=== PATIENT | male | born 2000 | race Caucasian/White ===

== ENCOUNTER → 2023-07-27 15:22 | Outpatient (BNVA) | payer OTHER, MEDICAID, SELFPAY | PROVIDERS: Family Provider Family Medicine; PCP Registered Nurse; Visit Provider Registered Nurse | DX: Z20.2 Contact with and (suspected) exposure to infections with a predominantly sexual mode of transmission (principal) | CPT/HCPCS: 87491; 87591 ==

== ENCOUNTER → 2023-08-05 15:34 | Outpatient (BNVA) | payer OTHER, MEDICAID, SELFPAY | PROVIDERS: Family Provider Family Medicine; PCP Registered Nurse; Visit Provider Registered Nurse | DX: A74.9 Chlamydial infection, unspecified (principal) | CPT/HCPCS: 87491; 87591 ==

== ENCOUNTER 2023-11-20 15:40 | Emergency (ER) | payer OTHER, SELFPAY ==
[2023-11-20 15:51] VITALS: BP 117/72; PULSE 85; RESP 17; TEMP 37.5; O2SAT 99; BMI 20.9
--- NOTE | 2023-11-20 16:39 | W.ED.ABDPA2 ---
HPI - Abdominal Pain General: Chief Complaint: Abdominal Pain Stated Complaint: stomach pain, fever Time Seen by Provider: 11/20/23 16:25 History of Present Illness: Is a healthy 23-year-old male who presents to the emergency room with abdominal pain. He has been having some periumbilical and lower abdominal pain for about 3 days now. He says he had a fever last night. He had some nausea but no vomiting. Hurts with movement and palpation. No dysuria. No chest pain. No altered mental status. Review of Systems Narrative: Constitutional symptoms: Negative except as documented in HPI. Skin symptoms: Negative except as documented in HPI. Eye symptoms: Negative except as documented in HPI. ENMT symptoms: Negative except as documented in HPI. Respiratory symptoms: Negative except as documented in HPI. Cardiovascular symptoms: Negative except as documented in HPI. Gastrointestinal symptoms: Negative except as documented in HPI. Genitourinary symptoms: Negative except as documented in HPI. Musculoskeletal symptoms: Negative except as documented in HPI. Neurologic symptoms: Negative except as documented in HPI. Psychiatric symptoms: Negative except as documented in HPI. Endocrine symptoms: Negative except as documented in HPI. PFSH ED PFSH: Medical History Acute lingual tonsillitis TMJ arthralgia Sore throat and laryngitis Social History Smoking and tobacco/nicotine status: current every day tobacco/nicotine user Alcohol intake: never Substance/Drug Use: never Adopted: No Caregiver/support person: No Lives independently: No service: No Current occupational status: employed Sexually active: Yes Do you think of yourself as: Straight/Heterosexual Current gender identity: Male Physical Exam Narrative: EXAM NARRATIVE: General: Alert, no acute distress. Skin: Warm, dry. Head: Normocephalic, atraumatic. Neck: Supple, trachea midline. Eye: Extraocular movements are intact. Ears, nose, mouth and throat: mucosa moist. Cardiovascular: Regular, Normal peripheral perfusion. Respiratory: Lungs are clear to auscultation, respirations are non-labored, breath sounds are equal, Symmetrical chest wall expansion. Gastrointestinal: Soft, some mid to low abdominal tenderness to palpation, Non distended, Normal bowel sounds. Musculoskeletal: Normal ROM, no deformity. Neurological: Alert and oriented, No focal neurological deficit observed. Psychiatric: Cooperative, appropriate mood & affect. Course Vital Signs: Vital signs: Vital Signs Temperature 99.5 F 11/20/23 15:51 Pulse Rate 90 11/20/23 18:29 Respiratory Rate 17 11/20/23 15:51 Blood Pressure 130/68 11/20/23 18:29 Pulse Oximetry 100 11/20/23 18:29 Oxygen Delivery Me thod Room Air 11/20/23 15:51 MDM - Abdominal Pain Medical Decision Making Medical decision making: Differential diagnosis for this patient with lower/right lower abdominal pain including but not limited to and based on the above HPI, review of systems and physical exam: Ureterolithiasis. Urinary tract infection. Appendicitis. colitis. small bowel obstruction. Crohn's flare. Pancreatitis. Cholelithiasis or cholecystitis. Hepatitis. Diverticulitis. Constipation. ovarian cyst. ovarian torsion Workup: Orders were placed to evaluate differential diagnosis based on the above differential, HPI and exam: Lab Review: Laboratory results were reviewed and interpreted by myself the emergency room physician. No leukocytosis but CRP is quite elevated at 65. No anemia. BUN/creatinine are fairly normal at 13 and 1.1. Urinalysis is negative. CT of the abdomen pelvis with contrast: Colonic inflammation indicative of colitis. Concern for some inflammation around the bladder. The urinalysis is negative however. This was reviewed and interpreted by myself the emergency room physician. I also reviewed the radiology report. I reviewed the patient's medical record Reexamination: Patient remained stable. He is in no distress. No increased work of breathing. He still has some lower abdominal pain. We discussed the findings and the plan. Assessment and plan: Colitis -Possible viral colitis versus bacterial versus autoimmune. He has never had issues like this before so I doubt Crohn's or UC but given the elevation in his CRP I did discuss that he should follow-up with his primary if he has recurrence of symptoms. And follow in the next few days to reevaluate. ? IV methylprednisolone, Flagyl and Cipro in the emergency room - Discharged home - Discussed findings and plan with patient. Answered any questions. - All laboratory values were reviewed and interpreted personally by myself, the ER physician - All imaging was reviewed and interpreted personally by myself, the ER physician. - Evaluation and treatment of this problem were appropriate in the emergency setting Lab Data 11/20/23 16:37 11/20/23 16:37 Labs/Radiology: Radiology Impressions Abdomen/Pelvis CT 11/20/23 17:32 IMPRESSION: 1. Abnormal thickening of the terminal ileum and right colon which may represent some nonspecific colitis. Inflammatory bowel disease is not excluded. 2. Nonspecific thickening of the urinary bladder. Please correlate for any clinical signs or symptoms of urinary tract infection. 3. There is minimal free fluid in the pelvis. Laboratory Results WBC 6.84 10^3/uL (3.29-11.43) 11/20/23 16:37 RBC 5.23 10^6/uL (3.85-5.65) 11/20/23 16:37 Hgb 14.60 g/dL (11.27-16.99) 11/20/23 16:37 Hct 43.9 % (37-53) 11/20/23 16:37 MCV 83.9 fl (82-101) 11/20/23 16:37 MCH 27.9 pg (27-33) 11/20/23 16:37 MCHC 33.3 g/dL (30-55) 11/20/23 16:37 RDW 12.4 % (12.1-15.1) 11/20/23 16:37 Plt Count 186 10^3/cmm (157-399) 11/20/23 16:37 MPV 9.6 fL (7.4-10.4) 11/20/23 16:37 Neut % (Auto) 71.1 % 11/20/23 16:37 Lymph % (Auto) 14.8 % 11/20/23 16:37 Patrick % (Auto) 12.0 % 11/20/23 16:37 Eos % (Auto) 1.3 % 11/20/23 16:37 Baso % (Auto) 0.7 % 11/20/23 16:37 Neut # (Auto) 4.86 10^3/uL (1.8-7.7) 11/20/23 16:37 Lymph # (Auto) 1.0 10^3/uL (0.8-4.8) 11/20/23 16:37 Patrick # (Auto) 0.8 10^3/uL (0.2-0.9) 11/20/23 16:37 Eos # (Auto) 0.1 10^3/uL (0.0-0.8) 11/20/23 16:37 Baso # (Auto) 0.1 10^3/uL (0.0-0.1) 11/20/23 16:37 Nucleated RBC % (auto) 0 % 11/20/23 16:37 Nucleated RBCs # 0.0 /100WBC 11/20/23 16:37 Sodium 138 mmol/L (136-145) 11/20/23 16:37 Potassium 3.9 mmol/L (3.5-5.1) 11/20/23 16:37 Chloride 103 mmol/L (98-107) 11/20/23 16:37 Carbon Dioxide 25 mmol/L (22-29) 11/20/23 16:37 Anion Gap 13.9 (5-19) 11/20/23 16:37 BUN 13 mg/dL (6-20) 11/20/23 16:37 Creatinine 1.1 mg/dL (0.7-1.2) 11/20/23 16:37 GFR Calculation 83.7 mL/min (90-130) L 11/20/23 16:37 Glucose 94 mg/dL (65-115) 11/20/23 16:37 Calculated Osmolality 286 mOsm/kg (285-295) 11/20/23 16:37 Calcium 9.7 mg/dL (8.5-10.5) 11/20/23 16:37 Total Bilirubin 0.4 mg/dL (0.15-1.2) 11/20/23 16:37 AST 18 U/L (0-40) 11/20/23 16:37 ALT 18 U/L (0-41) 11/20/23 16:37 Alkaline Phosphatase 81 U/L (40-130) 11/20/23 16:37 C-Reactive Protein 66.7 mg/L (0.0-4.9) H 11/20/23 16:37 Total Protein 8.0 g/dL (6.6-8.7) 11/20/23 16:37 Albumin 4.5 g/dL (3.5-5.2) 11/20/23 16:37 Globulin 3.5 g/dL (1.3-4.6) 11/20/23 16:37 Lipase 18 U/L (13-60) 11/20/23 16:37 Urine Color Yellow (Yellow) 11/20/23 16:30 Urine Appearance Clear (CLEAR) 11/20/23 16:30 Urine pH 5 (5-7) 11/20/23 16:30 Ur Specific Frederick 1.020 (1.005-1.030) 11/20/23 16:30 Urine Protein Neg (Negative) 11/20/23 16:30 Urine Glucose (UA) Norm (Normal) 11/20/23 16:30 Urine Ketones Negative (Negative) 11/20/23 16:30 Urine Blood Neg (Negative) 11/20/23 16:30 Urine Nitrate Negative (Negative) 11/20/23 16:30 Urine Bilirubin Neg (Negative) 11/20/23 16:30 Urine Urobilinogen Norm mg/dL (Negative) 11/20/23 16:30 Ur Leukocyte Esterase Negative (Negative) 11/20/23 16:30 All radiology interpretation(s) finalized by discharge Discharge Plan Discharge Patient Disposition: Home Clinical Impression: Colitis Condition: Stable Prescriptions: New prednisone 20 mg tablet 60 mg PO DAILY 5 Days Qty: 15 0RF metronidazole 500 mg tablet 500 mg PO Q8H 10 Days Qty: 30 0RF ciprofloxacin HCl 500 mg tablet 500 mg PO BID 10 Days Qty: 20 0RF ondansetron 8 mg tablet,disintegrating 8 mg PO .q6 PRN (Reason: nausea and vomiting) Qty: 14 0RF Discharge Orders: Discharge ED (Routine); Ordered 11/20/23 Ordered By: Nat Marshall Referrals: Ozzie Lorenzana HIDE GRADER [Primary Care Provider] - 4-7 days Discharge Diet: Advance as tolerated Discharge Activity: Increase activity as tolerated Patient Instructions: Colitis (ED) Activity Restrictions/Additional Instructions: Thank you for choosing [facility] for your healthcare needs today. Please realize this is an emergency room and that we are providing you with a medical screening exam and this may not be complete and all inclusive of all the testing and or work up that you may need to determine your ailment or severity of your illness. You have been screened and evaluated and felt safe for discharge. Health conditions do change or evolve sometimes and as such it is important that you follow up with your Primary Doctor to be re checked, 3-5 days is a general good time frame for follow up. You are always welcome to return to the ED for re assessment if your symptoms are worsening or you have new concerns Coding Level of Care Code ED Tutoring Manager for Harpal Butterfield
[2023-11-20 16:53] LABS: Add Urine Microscopic? NO; Charge for UA Resulting for Rev
[2023-11-20 17:02] LABS: Bilirubin Urine Neg (Negative); Blood Urine Neg (Negative); Glucose Urine UA Norm (Normal); Ketones Urine Negative (Negative); Leukocyte Esterase Urine Negative (Negative); Nitrate Urine Negative (Negative); Protein Urine Neg (Negative); Urine Appearance Clear (CLEAR); Urine Color Yellow (Yellow); Urobilinogen Urine Norm (Negative); pH Urine 5 (5-7)
[2023-11-20 17:03] LABS: Basophils # 0.1 10^3/uL (0.0-0.1); Basophils % 0.7 %; Eosinophils # 0.1 10^3/uL (0.0-0.8); Eosinophils % 1.3 %; Hematocrit 43.9 % (37-53); Lymphocytes % 14.8 %; Mean Corpuscular HGB Conc 33.3 g/dL (30-55); Mean Corpuscular Hemoglobin 27.9 pg (27-33); Mean Corpuscular Volume 83.9 fl (82-101); Mean Platelet Volume 9.6 fL (7.4-10.4); Monocytes # 0.8 10^3/uL (0.2-0.9); Neutrophils # 4.86 10^3/uL (1.8-7.7); Neutrophils % 71.1 %; Nucleated Red Blood Cells % 0 %; Platelet Count 186 10^3/cmm (157-399); Red Blood Count 5.23 10^6/uL (3.85-5.65); Red Cell Distribution Width 12.4 % (12.1-15.1); White Blood Count 6.84 10^3/uL (3.29-11.43)
[2023-11-20 17:20] LABS: Alanine Aminotransferase 18 U/L (0-41); Albumin Level 4.5 g/dL (3.5-5.2); Alkaline Phosphatase 81 U/L (40-130); Anion Gap 13.9 (5-19); Aspartate Amino Transferase 18 U/L (0-40); Blood Urea Nitrogen 13 mg/dL (6-20); C Reactive Protein 66.7 mg/L (0.0-4.9); Calcium 9.7 mg/dL (8.5-10.5); Carbon Dioxide 25 mmol/L (22-29); Chloride 103 mmol/L (98-107); Creatinine Clr Calc Pharmacy 104.7244; Globulin 3.5 g/dL (1.3-4.6); Glomerular Filtration Rate 83.7 mL/min (90-130); Glucose 94 mg/dL (65-115); Lipase 18 U/L (13-60); Osmolality Calculated 286 mOsm/kg (285-295); Potassium 3.9 mmol/L (3.5-5.1); Sodium 138 mmol/L (136-145); Total Bilirubin 0.4 mg/dL (0.15-1.2)
--- NOTE | 2023-11-20 17:32 | CTR_ITS ---
PROCEDURE INFORMATION: Exam: CT Abdomen And Pelvis With Contrast Exam date and time: 11/20/2023 5:47 PM Age: 23 years old Clinical indication: Abdominal pain; Localized; Right lower quadrant (rlq); Additional info: Rlq abdominal pain TECHNIQUE: Imaging protocol: Computed tomography of the abdomen and pelvis with contrast. Radiation optimization: All CT scans at this facility use at least one of these dose optimization techniques: automated exposure control; mA and/or kV adjustment per patient size (includes targeted exams where dose is matched to clinical indication); or iterative reconstruction. Contrast material: OMNI 350; Contrast volume: 100 ml; Contrast route: INTRAVENOUS (IV); COMPARISON: No relevant prior studies available. RADIATION DOSE METRICS: Total DLP (mGy-cm): 357.53 FINDINGS: Liver: There is no focal abnormality within the liver. Gallbladder and bile ducts: The gallbladder is normal. Pancreas: The pancreas is normal. Spleen: There is a 2 cm sized benign-appearing cyst in the spleen. No further evaluation is necessary. Adrenal glands: The adrenal glands are normal. Kidneys and ureters: The kidneys are normal. There is no evidence of hydronephrosis. There is no evidence of renal or ureteral calcifications. Stomach and bowel: The thickening also involves the terminal ileum. Findings could represent inflammatory bowel disease. Appendix: A normal appendix is identified. Intraperitoneal space: There is a small amount of free intraperitoneal fluid present. Vasculature: Unremarkable. No abdominal aortic aneurysm. Lymph nodes: There is no evidence of lymphadenopathy. Urinary bladder: There is moderate thickening of the urinary bladder. Please correlate for any clinical signs or symptoms of urinary tract infection. There is abnormal thickening of the right colon from the cecum through the mid transverse colon which may represent some nonspecific colitis. Please correlate clinically. Reproductive: Unremarkable as visualized. Bones/joints: Unremarkable. No acute fracture. Soft tissues: Unremarkable. CT/CT abdomen pelvis w con* [id number] IMPRESSION: 1. Abnormal thickening of the terminal ileum and right colon which may represent some nonspecific colitis. Inflammatory bowel disease is not excluded. 2. Nonspecific thickening of the urinary bladder. Please correlate for any clinical signs or symptoms of urinary tract infection. 3. There is minimal free fluid in the pelvis.
[2023-11-20] MEDS: iohexol 350 mg/mL 500 mL Btl (per mL) IV (17:56)
[2023-11-20] MEDS: methylPREDNISolone sod succ 125 mg/2 mL INJ IVP (18:26)
[2023-11-20 18:29] VITALS: BP 130/68; PULSE 90; O2SAT 100
[2023-11-20] MEDS: ciprofloxacin 400 MG/200 ML PREMIX 200 MG IV (18:29)
[2023-11-20] MEDS: metroNIDAZOLE IV 500 MG/100 ML PREMIX 100 MG IV (18:35)
--- NOTE | 2023-11-20 18:35 | PC.NURSE ---
MICROMEDICS CONFIRMED FLAGYL AND CIPRO ARE COMPATIBLE IV.
[2023-11-20 19:23] VITALS: BP 130/68; PULSE 90; RESP 17; TEMP 37.5; O2SAT 100
== END 2023-11-20 19:24 | disposition home or self-care (01) ==
PROVIDERS: Nurse Practitioner Family; Emergency Provider Emergency Medicine; PCP Registered Nurse
DX: K52.9 Noninfective gastroenteritis and colitis, unspecified (principal); Z72.0 Tobacco use
CPT/HCPCS: 74177; 80053; 81003; 83690; 85025; 86140; 96365; 96367; 96375; 99285; J0744; J2919; J3490; Q9967

== ENCOUNTER 2025-05-01 12:25 | Emergency (ER) | payer SELFPAY ==
[2025-05-01 12:27] VITALS: BP 130/74; PULSE 100; RESP 16; TEMP 36.6; O2SAT 98; BMI 18.6
--- OUTSIDE RECORDS SUMMARY | 2025-05-01 13:05 | XMS_ITS | Clinical Summary ---
Author Organization [facility] Address [address] Zamora: Epic Prelude ADT RONEL MALDONADO [address] Care Team Providers Care Weather Analyst Name Role Phone Jennifer Mary MD Primary Care Provider [phone] Allergies No known active allergies Medications No known medications Active Problems Problem Noted Date Diagnosed Date Second hand tobacco smoke exposure 05/23/2016 Nocturnal enuresis 07/24/2013 Verrucae vulgaris 09/29/2012 Encounters Date Type Department Care Team Description 02/08/2025 10:05 PM CDT - 02/08/2025 10:33 PM CDT Emergency [facility] Emergency Medicine [address] [place] [address] Owen Fajardo MD Lymphadenitis (Primary Dx) Discharge Disposition: Home or Self Care 02/08/2025 Travel from Last 3 Months Immunizations Immunization Administration Dates Next Due (ADACEL/BOOSTRIX)(10 YR UP) TDAP VACCINE, 0.5ML, IM 02/15/2015 (M-M-R II/PRIORIX)(12 MO UP) MEASLES, MUMPS AND RUBELLA VIRUS VACCINE, 0.5 ML IM/SUBCUT 03/09/2006 Dt Dtp Dtap Vaccine 03/09/2006 Hepatitis B Vaccine 2001 IPV/OPV 03/09/2006 Meningococcal A Conjugate Vaccine IM 02/15/2015 Family History Medical History Relation Name Comments Healthy Brother 1 Healthy Brother 2 Healthy Father Healthy Mother Breast Cancer Neg Hx Colon Cancer Neg Hx Relation Name Status Comments Brother 1 Alive Brother 2 Alive Father Alive Mother Alive Social History Tobacco Use Types Packs/Day Years Used Date Smoking Tobacco: Passive Smo ke Exposure - Never Smoker Smokeless Tobacco: Never Alcohol Use Standard Drinks/Week Comments No 0 (1 standard drink = 0.6 oz pur e alcohol) Feeling Safe Answer Date Recorded Are you in a relationship wi th someone who hurts you emotionally and/or physically? No 02/08/2025 Sex and Gender Information Value Date Recorded Sex Assigned at Not on file Legal Sex Male 12:34 AM UNIX ARCHITECT Gender Identity Not on file Sexual Orientation Not on file Last Filed Vital Signs Vital Sign Reading Time Taken Comments Blood Pressure 128/75 02/08/2025 10:08 PM CDT Pulse 80 02/08/2025 10:08 PM CDT Temperature 36.9 C (98.4 F) 02/08/2025 8:51 PM CDT Respiratory Rate 18 02/08/2025 8:51 PM CDT Oxygen Saturation 95% 02/08/2025 10: 08 PM CDT Inhaled Oxygen Concentration - - Weight 63.4 kg (139 lb 12.8 oz) 02/08/2025 8:51 PM CDT Height 177.8 cm (5' 10 ) 02/08/2025 8:51 PM CDT Body Mass Index 20.06 02/08/2025 8:51 PM CDT Plan of Treatment Health Maintenance Due Date Last Done Comments HEPATITIS B VACCINES (2 of 3 - 3-dose series) 2001 2001 HPV VACCINES (1 - Male 3-dose series) 2016 Preventative Visit-Managed Medicaid 09/02/202007/23, 02/15/2015 INFLUENZA VACCINE (#1) 2025 DTAP/TDAP/TD VACCINES (3 - Td or Tdap) 02/15/2025, 03/09/2006 Insurance [facility] CHO[facility] Care Teams Weather Analyst Relationship Specialty Start Date End Date Jennifer Mary MD [address] [id number] PCP - General Family Practice 09/08/13
[2025-05-01] MEDS: tetanus-dipt-pertussis 0.5 mL SDV IM (13:07)
--- NOTE | 2025-05-01 13:18 | XRR_ITS ---
PROCEDURE INFORMATION: Exam: XR Right Hand Exam date and time: 05/01/2025 1:26 PM Age: 24 years old Clinical indication: Injury or trauma; Other: Hit some glass; Laceration; Hand; Injury details: C/O lac to the right 2,3,4 digits. PT states that he hit some glass. TECHNIQUE: Imaging protocol: Radiologic exam of the right hand. Views: 3 or more views. COMPARISON: No relevant prior studies available. FINDINGS: Bones/joints: No fracture. No radiopaque foreign material. Soft tissues: Normal. XR/XR hand RT min 3V* [id number] IMPRESSION: No acute findings.
--- NOTE | 2025-05-01 13:52 | W.ED.WOUNDLC ---
HPI - Wound/Laceration General: Chief Complaint: Wound/Laceration Stated Complaint: R hand cuts Time Seen by Provider: 05/01/25 12:58 History of Present Illness: 24-year-old male, was upset, and hit a glass visor with his right hand. Laceration to dorsum of index finger, middle finger, ring finger, 2nd, 3rd and 4th finger respectively. No sensation or weakness changes. This occurred 5 hours prior to presentation. 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 Difficult time controlling the bleeding, and therefore came to ED for further evaluation. Associated symptoms: Denies chills, fever(s), nausea or vomiting Related Data Home Medications ?Medication ?Instructions ?Recorded ?Confirmed bupropion HCl 150 mg 24 hr tablet, mg PO 03/28/24 03/28/24 extended release propranolol 20 mg tablet mg PO 03/28/24 03/28/24 Previous Rx's ?Medication ?Instructions ?Recorded clindamycin 1.2 % (1 % 1 applic topical DAILY 30 days #45 03/29/24 base)-benzoyl peroxide 5 % topical grams gel cephalexin 500 mg capsule 500 mg PO BID 10 days #20 caps 05/01/25 Allergies Allergy/AdvReac Type Severity Reaction Status Date / Time No Known Allergies Allergy Verified 05/01/25 12:32 Review of Systems General: Reports: 10 or more systems reviewed and unremarkable except in HPI and below Const: Denies: fever(s) or chills Eyes: Denies: change in vision or blurry vision Card: Denies: chest pain or palpitations Resp: Denies: dyspnea or non-productive cough GI: Denies: abdominal pain, nausea or vomiting : Denies: flank pain or difficulty urinating Musc: Reports: extremity pain and joint pain; Denies: neck pain, back pain, joint swelling, joint stiffness or limited range of motion Skin/Breast: Reports: new lesions and surgical incision (Laceration) Neuro: Denies: headache(s) or numbness in extremities Psych: Reports: anxiety, depression, mood swings and other (angry ); Denies: suicidal ideation [facility] ED PFSH: Medical History (Updated 05/01/25 @ 14:54 by GUILHERME Armendariz) Acute lingual tonsillitis TMJ arthralgia Sore throat and laryngitis Social History (Reviewed 03/29/24 @ 13:49 by XANDER Spring Smoking and tobacco/nicotine status: current every day tobacco/nicotine user Alcohol intake: never Substance/Drug Use: never Adopted: No Caregiver/support person: No Lives independently: No service: No Current occupational status: employed Sexually active: Yes Do you think of yourself as: Straight/Heterosexual Current gender identity: Male Physical Exam Const: COMMON NORMALS: no acute distress, average body habitus and patient oriented x3 HENMT: COMMON NORMALS: normocephalic and atraumatic HEAD & SCALP: normocephalic and atraumatic Neck/C-Spine: COMMON NORMALS: full ROM and no lymphadenopathy Lymph: LYMPHATIC: no lymphadenopathy noted Chest: COMMONS NORMALS: normal inspection of the chest and normal palpation of entire chest wall Resp: COMMON NORMALS: normal respiratory effort, No retractions and No use of accessory muscles Cardio: COMMON NORMALS: regular rate and regular rhythm RATE: regular rate RHYTHM: regular rhythm GI: COMMON NORMALS: Normal to inspection, nondistended, normoactive bowel sounds present, Soft to palpation, non-tender and No hepatosplenomegaly present PALPATION: Yes Soft to palpation and Yes No hepatosplenomegaly present : COMMON NORMALS: Yes no CVA tenderness BLADDER/KIDNEY EXAM: Yes no CVA tenderness Back/Pelvis: COMMON NORMALS: no CVA tenderness Extremity: COMMON NORMALS: full ROM and capillary refill normal NARRATIVE EXTREMITY EXAM: Second finger/index finger, dorsum, proximately: Jagged laceration, sinuses of skin hanging, 3.5 cm. Third finger/middle finger, dorsum, proximately: Flap, 3 cm Fourth finger/ring finger, dorsum, proximally: Flap, 3 cm RIGHT UPPER EXTREMITY: Yes hand & digits Right hand and digits: Yes inspection (Lacerations as described), Yes palpation (Pain due to lacerations), Yes ROM exam, Yes neurovascular exam and Yes tendon exam (Intact) Neuro: COMMON NORMALS: patient oriented x3 Procedures Laceration Laceration 1: Site: hand (Dorsum proximal index finger) Side (If applicable): right Size (cm): 5 Description: flap, irregular and contaminated Depth: simple, single layer Local Anesthetic: lidocaine 1% Amount of anesthesia used (mL): 3 Pre-repair: wound explored, irrigated extensively, deep structures intact, extensive debridement and wound margins revised Skin layer closed with: nylon Size (cm): 4-0 Number of sutures: 9 Technique: simple, interrupted Laceration 2: Site: hand Side (If applicable): right (Proximal middle, third dorsum) Size (cm): 3 Description: flap Depth: simple, single layer Local Anesthetic: lidocaine 1% Amount of anesthesia used (mL): 3 Pre-repair: wound explored, irrigated extensively and deep structures intact Size (cm): 4-0 Number of sutures: 5 Technique: simple, interrupted Laceration 3: Site: hand Side (If applicable): right (Proximal dorsum ring finger fourth) Size (cm): 3 Description: linear and flap Depth: simple, single layer Local Anesthetic: lidocaine 1% Amount of anesthesia used (mL): 3 Pre-repair: wound explored, irrigated extensively and deep structures intact Skin layer closed with: nylon Size (cm): 4-0 Number of sutures: 4 Course Vital Signs: Vital signs: Vital Signs Temperature 97.9 F 05/01/25 12:27 Pulse Rate 100 05/01/25 12:27 Respiratory Rate 16 05/01/25 12:27 Blood Pressure 130/74 05/01/25 12:27 Pulse Oximetry 98 05/01/25 12:27 MDM - Wound/Laceration Medical Decision Making Patient is a pleasant 24-year-old male that hit a visor, broke the mirror, and lacerated his second, third, fourth fingers proximally. He did not have fracture on x-ray. He was not trying to cause any self-harm, he was just angry. He feels better now, and does not plan on doing this again. Laceration was repaired after good anesthesia as addressed above. Patient tolerated without issues. Instructions verbally and written given to patient. Medical Records I reviewed the patient's medical records. Lab Data I reviewed the patient's lab results. Radiology Impressions Hand X-Ray 05/01/25 13:18 IMPRESSION: No acute findings. All radiology interpretation(s) finalized by discharge ED provider radiology interpretation(s): No acute findings Discharge Plan Discharge Patient Disposition: Home Clinical Impression: Laceration Condition: Stable Prescriptions: New cephalexin 500 mg capsule 500 mg PO BID 10 Days Qty: 20 0RF No Action bupropion HCl 150 mg tablet extended release 24 hr PO propranolol 20 mg tablet PO clindamycin-benzoyl peroxide 1.2 %(1 % base) -5 % gel 1 applic topical DAILY 30 Days Qty: 45 1RF Discharge Orders: Discharge ED (Routine); Ordered 05/01/25 Ordered By: Leigh Aponte Referrals: Ozzie Lorenzana FNP [Primary Care Provider, Family Practice] Discharge Diet: Usual diet Discharge Activity: Limit activity as instructed Patient Instructions: Diphtheria/Acellular Pertussis/Tetanus Booster Vaccine (By injection), Laceration (ED), Patient Portal & Brenda Instructions Activity Restrictions/Additional Instructions: - Remove sutures in 8-10 days. You can come here or make an appointment with your primary care physician. -Antibiotics at the pharmacy: Cephalexin. Use as directed - Wash your hands at least twice daily with antibacterial soap. Cover while you are at work. Do not apply antibiotic ointment longer than 24 hours. Apply Vaseline to the surface, tape/cover. - Ibuprofen and Tylenol for pain -Ice, elevation -Return to ED if there is redness outside of this area, streaking, increasing pain, 100.4 degrees fever. Thank you for choosing [facility] for your healthcare needs today. You have been screened and evaluated and felt safe for discharge. Health conditions do change or evolve sometimes and as such it is important that you follow up with your Primary Doctor to be re checked, 3-5 days is a general good time frame for follow up. You are always welcome to return to the ED for re assessment if your symptoms are worsening or you have new concerns Print Language: [place] Island[place] Coding Level of Care Code ED Shear Scrapman for Harpal Butterfield
== END 2025-05-01 15:08 | disposition home or self-care (01) ==
PROVIDERS: Emergency Provider Physician Assistant; PCP Registered Nurse
DX: S61.210A Laceration without foreign body of right index finger without damage to nail, initial encounter (principal); S61.212A Laceration without foreign body of right middle finger without damage to nail, initial encounter; S61.214A Laceration without foreign body of right ring finger without damage to nail, initial encounter; Z72.0 Tobacco use; W22.8XXA Striking against or struck by other objects, initial encounter
CPT/HCPCS: 12004; 73130; 90715; 99283; J9999